=== PATIENT | male | born 1955 | race African-American/Black ===

== ENCOUNTER 2021-05-13 11:44 | Observation (INO) | payer MEDICARE, OTHER ==
[~2021-05-13] VITALS: Ht 180.3 cm; Wt 142.4 kg
[2021-05-13] MEDS ORDERED: ACETAMINOPHEN 500 MG TABLET PO ONE (12:15)
[2021-05-13] MEDS ORDERED: fentaNYL 75MCG/HR PATCH 1 PATCH PATCH.TD72 TD ONE (12:15)
--- NOTE | 2021-05-13 12:36 | PHYS DOC ---
Past Medical History Past Surgical History: Pacemaker Smoking Status: Never Smoker Alcohol Use: None General Adult EDM: Chief Complaint: ELBOW PROBLEM HPI: HPI: Patient is a 65 year old male who presents with 2 days ago he was drinking alcohol on top of his medications that usually make him dizzy and fell walking to the kitchen and then fell again onto his bottom. Patient is not very forthcoming with information. He states he is always dizzy and the room is spinning at this time. He states he is getting around normal except for Thursday when he had been drinking. states that he has indeed been getting around as normal except for on Thursday when he had been drinking. He does walk with a cane. He is complaining of left elbow pain, low back pain. He denies hitting his head, neck pain, focal weakness, numbness or tingling, chest pain, shortness of air, abdominal pain, nausea, vomiting or diarrhea. Patient does have diabetes, hypertension, CHF, high cholesterol. Rates his pain an 8 out of 10. Review of Systems: Review of Systems: Constitutional: Denies fever or chills. [] Eyes: Denies change in visual acuity. [] HENT: Denies nasal congestion or sore throat. [] Respiratory: Denies cough or shortness of breath. [] Cardiovascular: Denies chest pain or edema. [] GI: Denies abdominal pain, nausea, vomiting, bloody stools or diarrhea. [] : Denies dysuria. [] Musculoskeletal: + Lower back pain or + left elbow joint pain. [] Integument: Denies rash. [] Neurologic: Denies headache, focal weakness or sensory changes. + Chronic dizziness [] Endocrine: Denies polyuria or polydipsia. [] Lymphatic: Denies swollen glands. [] Psychiatric: Denies depression or anxiety. [] Heart Score: C/O Chest Pain: No Current Medications: Current Medications Medications (Trade) Dose Ordered Sig/Stephanie Start Time Stop Time Status Last Admin Dose Admin Acetaminophen (Tylenol) 1,000 mg 1X ONCE 05/13/21 12:15 05/13/21 12:16 UNV Fentanyl (Duragesic 75mcg/ Hr Patch) 1 patch 1X ONCE 05/13/21 12:15 05/13/21 12:16 UNV Allergies: Allergies: Allergies Coded Allergies Type Severity Reaction Last Updated Verified Penicillins Allergy Intermediate 05/13/21 Yes lorazepam Allergy Intermediate 05/13/21 Yes Physical Exam: PE: Constitutional: Well developed, well nourished, no acute distress, non-toxic appearance. [] HENT: Normocephalic, atraumatic, bilateral external ears normal, oropharynx moist, no oral exudates, nose normal. [] Eyes: PERRLA, EOMI, conjunctiva normal, no discharge. [] Neck: Normal range of motion, no tenderness, supple, no stridor. [] Cardiovascular:Heart rate regular rhythm, no murmur [] Lungs & Thorax: Bilateral breath sounds clear to auscultation [] Abdomen: Bowel sounds normal, soft, no tenderness, no masses, no pulsatile masses. [] Skin: Warm, dry, no erythema, no rash. [] Back: Mid lower lumbar tenderness, no CVA tenderness. [] Extremities: Left elbow tenderness, no cyanosis, no clubbing, ROM intact, 1+ edema. [] Neurologic: Alert and oriented X 3, normal motor function, normal sensory function, no focal deficits noted. [] Psychologic: Affect normal, judgement normal, mood normal. [] Current Patient Data: Vital Signs: Vital Signs Date Time Temp Pulse Resp B/P (MAP) Pulse Ox O2 Delivery O2 Flow Rate FiO2 05/13/21 11:45 98.3 58 20 115/71 (86) 99 Room Air 98.3 EKG: EKG: [] Radiology/Procedures: Radiology/Procedures: [] Impression: [facility] [address] [place], [place] [id number] IMAGING REPORT Signed PATIENT: JESUS MCCLUREUNT: [id number] : 1955 LOCATION: ER AGE: 65 SEX: M EXAM STATUS: REG ER ORD. PHYSICIAN: JOSH NASH APRN REASON: DIZZINESS, FALL PROCEDURE: CT HEAD AND CERVICAL SPINE WO Examination: CT head and cervical spine without contrast CT HEAD INDICATION: Reason: DIZZINESS, FALL / Spl. Instructions: / History: COMPARISON: None Available. Exposure: One or more of the following individualized dose reduction techniques were utilized for this examination: 1. Automated exposure control 2. Adjustment of the mA and/or kV according to patient size 3. Use of iterative reconstruction technique TECHNIQUE: 5 mm contiguous axial images were obtained from the skull base to the vertex in both bone and soft tissue algorithm. FINDINGS: Examination is very limited due to patient body habitus. Mild bilateral periventricular white matter hypodensities likely chronic small vessel ischemic disease. No evidence of acute intracranial hemorrhage. No extra-axial fluid collections. No mass effect or midline shift. Ventricular size is appropriate. Basal cisterns are patent. No fractures identified.Watson-white differentiation is preserved.Globes and orbits are within normal limits. Paranasal sinuses and mastoid air cells are clear. CT CERVICAL SPINE INDICATION: Reason: DIZZINESS, FALL / Spl. Instructions: / History: COMPARISON: None Available. Technique: 2.5 mm contiguous axial images were obtained from the skull base t hrough the cervicothoracic junction in both bone and soft tissue algorithm. Additional sagittal and coronal reconstructions were also performed. FINDINGS: Examination is very limited due to patient body habitus limits evaluation. Mild compression changes of cervical vertebral bodies particularly at C4, C5, C6, C7 vertebral levels likely chronic. Moderate anterior osteophyte formation identified at this levels. The bilateral facets are well aligned. . The lateral masses of C1 are aligned upon C2. No fractures identified. The bony canal is patent throughout. The paraspinous soft tissues are unremarkable. Visualized intracranial contents are unremarkable. Lung apices are clear. IMPRESSION: 1. No acute intracranial findings. 2. Examination is very limited due to patient body habitus limits evaluation. Mild compression changes of cervical vertebral bodies particularly at C4, C5, C6, C7 vertebral levels likely chronic. Moderate degenerative changes cervical spine. Electronically signed by: Yrn Ortiz MD (05/13/2021 1:07 PM) [id number] DICTATED and SIGNED BY: YRN ORTIZ MD DATE: 05/13/21 [id number] [facility] [address] [place], [place] [id number] IMAGING REPORT Signed PATIENT: JESUS MCCLUREUNT: [id number] : 1955 LOCATION: ER AGE: 65 SEX: M EXAM STATUS: REG ER ORD. PHYSICIAN: JOSH NASH APRN REASON: PAIN AFTER FALL PROCEDURE: ELBOW LEFT 3V Exam: XR ELBOW COMPLETE_LEFT 3+VIEWS History: Pain after fall. Comparison: None. Findings: Osseous mineralization is normal. There is a moderate elbow effusion without a fracture identified. Mild degenerative changes at the olecranon soft tissue swelling. Impression: 1. Elbow effusion without acute osseous abnormality identified is concerning for occult fracture, most commonly at the radial head. Recommend conservative management. Consider repeat radiographs in 1-[address] of the elbow for further evaluation for suspected occult fracture. Electronically signed by: Omer Chapman MD (05/13/2021 1:10 PM) [id number] DICTATED and SIGNED BY: OMER CHAPMAN MD DATE: 05/13/21 [id number] [facility] [address] [place] [address] IMAGING REPORT Signed PATIENT: JESUS MCCLUREUNT: [id number] : 1955 LOCATION: ER AGE: 65 SEX: M EXAM STATUS: REG ER ORD. PHYSICIAN: JOSH NASH APRN REASON: LOW BACK PAIN PROCEDURE: CT LUMBAR SPINE WO CONTRAST EXAM: Lumbar spine CT without contrast. HISTORY: Pain. TECHNIQUE: Computed tomographic images of the lumbar spine were obtained without contrast. Multiplanar reformatting was performed. *One or more of the following individualized dose reduction techniques were utilized for this examination: 1. Automated exposure control. 2. Adjustment of the mA and/or kV according to patient size. 3. Use of iterative reconstruction technique. COMPARISON: None. FINDINGS: There is mild lumbar scoliosis. There is no significant listhesis. There is degenerative endplate remodeling with disc space narrowing, osteophytosis and Schmorl's node formation primarily along the right aspect of L4-L5. This corresponds with the level of maximum scoliotic concavity. There is a lesser degree of endplate remodeling, osteophytosis and Schmorl's node formation along the left aspect of L5-S1. 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 There is degenerative spurring and subchondral sclerosis involving the left greater than right sacroiliac joints. The sacral posterior elements are congenitally nonfused. There is slight nodularity of the right adrenal gland, partially included on the [id number] and likely due to nodular thickening rather than an adenoma. At L1-L2, there is a disc bulge and endplate remodeling. There is no stenosis. At L2-L3, there is a disc bulge and endplate remodeling. There is mild bilateral facet arthropathy. There is mild bilateral foraminal stenosis. At L3-L4, there is a disc bulge and endplate remodeling. There is mild bilateral facet arthropathy. There is mild left greater than right foraminal stenosis. There is mild central canal stenosis. At L4-L5, there is a right foraminal to extra foraminal disc protrusion and osteophyte complex with slight superior extrusion superimposed on a right lateral predominant disc bulge and endplate osteophytosis. There is moderate right facet arthropathy. There is severe right and moderate left foraminal stenosis. There is mild central canal stenosis. At L5-S1, there is a left lateral predominant disc bulge and endplate osteophytosis. There is moderate right and severe left foraminal stenosis. IMPRESSION: 1. Multilevel degenerative change involving the lumbar spine, described in detail above. This results in stenosis at the aforementioned levels. The right foraminal stenosis is most significant at L4-5 and a left foraminal stenosis is most significant at L5-S1. 2. Lumbar scoliosis. Electronically signed by: Chelsey De Anda MD (05/13/2021 1:08 PM) [id number] DICTATED and SIGNED BY: CHELSEY DE ANDA MD DATE: 05/13/21 [id number] 0 Course & Med Decision Making: Course & Med Decision Making Pertinent Labs and Imaging studies reviewed. (See chart for details) See HPI. Alert and oriented x4. Ambulatory with a steady gait but uses a cane. Neurologically intact. Speaks in full clear sentences. Answers all questions appropriately. Full range of motion of the left elbow but there is 1+ swelling without redness or heat. Is painful with motion. Radial pulse strong are present. Cap refill less than 2 seconds. Can wiggle his fingers. No deformity or laxity. Forearm and humerus are not tender or deformed or swollen. No focal bony spinal tenderness except for lumbar area and paraspinal lumbar areas. Patient is wearing a brace on his elbow and a sling from home. Full ROM of the neck without tenderness. No trauma to the face or head. I did have Dr Masters go in and see the patient also since he was not forth coming with information. Patient does have a left radial head fracture. He will be splinted with posterior splint. He will be admitted to the hospital due to being a high fall risk probability due to the patient already having poor mobile ability. I spoke to Dr. Villa with orthopedics and he states he will come in and consult on the patient. Splint assessment: Neurovascularly intact post splint replacement with good fit. Patient's extremity symptoms have stabilized well they have been evaluated in the department and are appropriate for outpatient follow-up. No evidence of compartment syndrome, neurologic injury, vascular injury, open joint, open fracture, tendon laceration, or foreign body. [] Dragon Disclaimer: Dragon Disclaimer: This electronic medical record was generated, in whole or in part, using a voice recognition dictation system. Departure Departure Impression: Primary Impression: Radial head fracture, closed Qualified Codes: S52.125A - Nondisplaced fracture of head of left radius, initial encounter for closed fracture Additional Impressions: Unable to ambulate Unable to care for self Frequent falls Disposition: ADMITTED INPATIENT Admitting Physician: VASILE Condition: STABLE Referrals: Shobha VELEZ MD (PCP) JOSH NASH APRN May 13, 2021 12:36
[2021-05-13 12:43] LABS: BASO # 0.1 x10^3/uL (0.0-0.2); BASO % 0 % (0-3); EOS % 0 % (0-3); HEMATOCRIT 38.1 % (39.0-53.0); HEMOGLOBIN 12.3 g/dL (13.0-17.5); LYMPH # 0.7 x10^3/uL (1.0-4.8); LYMPH % 5 % (24-48); MEAN CORPUSCULAR HEMOGLOBIN 31 pg (25-35); MEAN CORPUSCULAR HGB CONC 32 g/dL (31-37); MEAN CORPUSCULAR VOLUME 95 fL (79-100); MONO # 1.1 x10^3/uL (0.0-1.1); MONO % 9 % (0-9); NEUT # 10.5 x10^3/uL (1.8-7.7); NEUT % 85 % (31-73); PLATELET COUNT 164 x10^3/uL (140-400); RED BLOOD COUNT 3.99 x10^6/uL (4.30-5.70); RED CELL DISTRIBUTION WIDTH 14.9 % (11.5-14.5); WHITE BLOOD COUNT 12.4 x10^3/uL (4.0-11.0)
[2021-05-13 12:52] LABS: CALCIUM 9.1 mg/dL (8.5-10.1); CREATININE 1.6 mg/dL (0.7-1.3); GFR 53.1; POTASSIUM 4.4 mmol/L (3.5-5.1)
[2021-05-13 12:58] LABS: ALBUMIN 3.4 g/dL (3.4-5.0); ALBUMIN/GLOBULIN RATIO 0.7 (1.0-1.7); TOTAL BILIRUBIN 1.2 mg/dL (0.2-1.0); TOTAL PROTEIN 8.1 g/dL (6.4-8.2)
--- NOTE | 2021-05-13 13:09 | RAD ---
Examination: CT head and cervical spine without contrast CT HEAD INDICATION: Reason: DIZZINESS, FALL / Spl. Instructions: / History: COMPARISON: None Available. Exposure: One or more of the following individualized dose reduction techniques were utilized for thi s examination: 1. Automated exposure control 2. Adjustment of the mA and/or kV according to patient size 3. Use of iterative reconstruction technique TECHNIQUE: 5 mm contiguous axial images were obtained from the skull base to the vertex in both bone and soft tissue algorithm. FINDINGS: Examination is very limited due to patient body habitus. Mild bilateral periventricular white matter hypodensities likely chronic small vessel ischemic diseas e. No evidence of acute intracranial hemorrhage. No extra-axial fluid collections. No mass effect or midline shift. Ventricular size is appropriate. Basal cisterns are patent. No fractures identified.Watson-white differentiation is preserved.Globes and orbits are within normal l imits. Paranasal sinuses and mastoid air cells are clear. CT CERVICAL SPINE INDICATION: Reason: DIZZINESS, FALL / Spl. Instructions: / History: COMPARISON: None Available. Technique: 2.5 mm contiguous axial images were obtained from the skull base through the cervicothorac ic junction in both bone and soft tissue algorithm. Additional sagittal and coronal reconstructions were also performed. FINDINGS: Examination is very limited due to patient body habitus limits evaluation. Mild compression changes o f cervical vertebral bodies particularly at C4, C5, C6, C7 vertebral levels likely chronic. Moderate anterior osteophyte formation identified at this levels. The bilateral facets are well aligned. . Th e lateral masses of C1 are aligned upon C2. No fractures identified. The bony canal is patent throughout. The paraspinous soft tissues are unremarkable. Visualized intracranial contents are unremarkable. L karen apices are clear. IMPRESSION: 1. No acute intracranial findings. 2. Examination is very limited due to patient body habitus limits evaluation. Mild compression skinner es of cervical vertebral bodies particularly at C4, C5, C6, C7 vertebral levels likely chronic. Moder ate degenerative changes cervical spine. Electronically signed by: Yrn Ortiz MD (05/13/2021 1:07 PM) [id number]
--- NOTE | 2021-05-13 13:11 | RAD ---
EXAM: Lumbar spine CT without contrast. HISTORY: Pain. TECHNIQUE: Computed tomographic images of the lumbar spine were obtained without contrast. Multiplana r reformatting was performed. *One or more of the following individualized dose reduction techniques were utilized for this examina tion: 1. Automated exposure control. 2. Adjustment of the mA and/or kV according to patient size. 3. Use of iterative reconstruction technique. COMPARISON: None. FINDINGS: There is mild lumbar scoliosis. There is no significant listhesis. There is degenerative en dplate remodeling with disc space narrowing, osteophytosis and Schmorl's node formation primarily sonya ng the right aspect of L4-L5. This corresponds with the level of maximum scoliotic concavity. There i s a lesser degree of endplate remodeling, osteophytosis and Schmorl's node formation along the left a spect of L5-S1. 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 There is degenerativ e spurring and subchondral sclerosis involving the left greater than right sacroiliac joints. The sac ral posterior elements are congenitally nonfused. There is slight nodularity of the right adrenal gla nd, partially included on the [id number] and likely due to nodular thickening rather than an adeno ma. At L1-L2, there is a disc bulge and endplate remodeling. There is no stenosis. At L2-L3, there is a disc bulge and endplate remodeling. There is mild bilateral facet arthropathy. T here is mild bilateral foraminal stenosis. At L3-L4, there is a disc bulge and endplate remodeling. There is mild bilateral facet arthropathy. T here is mild left greater than right foraminal stenosis. There is mild central canal stenosis. At L4-L5, there is a right foraminal to extra foraminal disc protrusion and osteophyte complex with s light superior extrusion superimposed on a right lateral predominant disc bulge and endplate osteophy tosis. There is moderate right facet arthropathy. There is severe right and moderate left foraminal s tenosis. There is mild central canal stenosis. At L5-S1, there is a left lateral predominant disc bulge and endplate osteophytosis. There is moderat e right and severe left foraminal stenosis. IMPRESSION: 1. Multilevel degenerative change involving the lumbar spine, described in detail above. This results in stenosis at the aforementioned levels. The right foraminal stenosis is most significant at L4-5 a nd a left foraminal stenosis is most significant at L5-S1. 2. Lumbar scoliosis. Electronically signed by: Chelsey Jennings MD (05/13/2021 1:08 PM) [id number]
--- NOTE | 2021-05-13 13:12 | RAD ---
Exam: XR ELBOW COMPLETE_LEFT 3+VIEWS History: Pain after fall. Comparison: None. Findings: Osseous mineralization is normal. There is a moderate elbow effusion without a fracture identified. M ild degenerative changes at the olecranon soft tissue swelling. Impression: 1. Elbow effusion without acute osseous abnormality identified is concerning for occult fracture, mo st commonly at the radial head. Recommend conservative management. Consider repeat radiographs in 1-[address] of the elbow for further evaluation for suspected occult fracture. Electronically signed by: Omer Schroeder MD (05/13/2021 1:10 PM) [id number]
[2021-05-13 16:40] VITALS: BP 98/63
[2021-05-13 19:00] VITALS: BP 115/74
[2021-05-13] MEDS ORDERED: CALCIUM CARBONATE 500 MG TAB.CHEW PO PRN (19:00)
[2021-05-13] MEDS ORDERED: ONDANSETRON PF 4 MG/2 ML VIAL. IVP PRN (19:00)
[2021-05-13] MEDS ORDERED: oxyCODONE/APAP 5/325 1 TAB TABLET PO PRN (19:00)
[2021-05-13] MEDS ORDERED: ELECTROLYTE (NON-ICU) PROTOCOL. MC PRN (19:00)
[2021-05-13] MEDS ORDERED: ACETAMINOPHEN 325 MG TABLET. PO PRN (19:00)
[2021-05-13] MEDS ORDERED: ZOLPIDEM 5 MG TABLET. PO PRN (19:00)
[2021-05-13] MEDS: oxyCODONE/APAP 5/325 1 TAB TABLET PO PRN (20:36)
[2021-05-13] MEDS: SENNOSIDES/DOCUSATE 8.6/50MG TABLET. PO SCH (20:36)
[2021-05-13] MEDS: HEPARIN for SUB-Q USE 5,000 UNIT/ML VIAL. SQ SCH (22:23)
[2021-05-13 23:00] VITALS: BP 104/70
[2021-05-14 03:00] VITALS: BP 103/79
[2021-05-14] MEDS: HEPARIN for SUB-Q USE 5,000 UNIT/ML VIAL. SQ SCH ×2 (05:52→14:28)
[2021-05-14 07:00] VITALS: BP 115/75
[2021-05-14] MEDS: SENNOSIDES/DOCUSATE 8.6/50MG TABLET. PO SCH (08:27)
--- NOTE | 2021-05-14 09:56 | PDOC1 ---
History and Physical Date of Service: DOS: DATE: 05/14/21 TIME: 09:50 History of Present Illness: HPI: Patient really not providing much info H&P from emergency room Patient is a 65 year old male who presents with 2 days ago he was drinking alcohol on top of his medications that usually make him dizzy and fell walking to the kitchen and then fell again onto his bottom. Patient is not very forthcoming with information. He states he is always dizzy and the room is spinning at this time. He states he is getting around normal except for Thursday when he had been drinking. states that he has indeed been getting around as normal except for on Thursday when he had been drinking. He does walk with a cane. He is complaining of left elbow pain, low back pain. He denies hitting his head, neck pain, focal weakness, numbness or tingling, chest pain, shortness of air, abdominal pain, nausea, vomiting or diarrhea. Patient does have diabetes, hypertension, CHF, high cholesterol. Rates his pain an 8 out of 10. Past Medical/Surgical History: PMH/PSH: Diabetes hypertension CHF Allergies: Allergies: Coded Allergies: Penicillins (Verified Allergy, Intermediate, 05/13/21) lorazepam (Verified Allergy, Intermediate, 05/13/21) Family History: Family History: Hypertension Social History: Social History: Denies tobacco use. Frequent alcohol use Current Medications: Current Medications Current Medications Acetaminophen (Tylenol) 1,000 mg 1X ONCE PO Last administered on 05/13/21at 13:14; Start 05/13/21 at 12:15; Stop 05/13/21 at 12:32; Status DC Fentanyl (Duragesic 75mcg/ Hr Patch) 1 patch 1X ONCE TD Last administered on 05/13/21at 13:14; Start 05/13/21 at 12:15; Stop 05/13/21 at 12:32; Status DC Ondansetron HCl (Zofran) 4 mg PRN Q6HRS PRN IVP NAUSEA/VOMITING; Start 05/13/21 at 19:00 Calcium Carbonate/ Glycine (Tums) 500 mg PRN Q3HRS PRN PO UPSET STOMACH; Start 05/13/21 at 19:00 Zolpidem Tartrate (Ambien) 5 mg PRN QHS PRN PO INSOMNIA, MAY REPEAT IN 1HR; Start 05/13/21 at 19:00 Info (Non-Icu Electrolyte Protocol) 1 ea PRN DAILY PRN MC SEE COMMENTS; Start 05/13/21 at 19:00 Oxycodone/ Acetaminophen (Percocet 5/325) 1 tab PRN Q4HRS PRN PO MILD PAIN, 1ST CHOICE; Start 05/13/21 at 19:00 Oxycodone/ Acetaminophen (Percocet 5/325) 2 tab PRN Q4HRS PRN PO MODERATE PAIN, SEVERE PAIN Last administered on 05/13/21at 20:36; Start 05/13/21 at 19:00 Acetaminophen (Tylenol) 650 mg PRN Q6HRS PRN PO Headaches, Temp > 101.5F; Start 05/13/21 at 19:00 Senna/Docusate Sodium (Senna Plus) 1 tab BID PO Last administered on 05/14/21at 08:27; Start 05/13/21 at 21:00 Heparin Sodium (Porcine) (Heparin Sodium) 5,000 unit Q8HRS SQ Last administered on 05/14/21at 05:52; Start 05/13/21 at 22:00 ROS: Review of Systems Review of System Negative unless noted in HPI Physical Exam: Vital Signs: Vital Signs Date Time Temp Pulse Resp B/P (MAP) Pulse Ox O2 Delivery O2 Flow Rate FiO2 05/14/21 07:00 98.5 93 18 115/75 (88) 95 Room Air 98.5 Physcial Exam: GEN: No apparent distress. Alert and oriented HEENT: Normal cephalic, atraumatic, external auditory canals are patent EYES: Extraocular muscles are intact, pupil are equally round and reactive to light and accommodation MUSCULOSKELETAL: Well developed , well nourished, good range of motion ENDOCRINE: No thyromegaly was palpated LYMPHATICS: No cervical chain or axillary nodes were noted HEMATOPOIETIC: No bruising NECK: Supple, no JVD, no thyromegaly was noted LUNGS: Clear to auscultation in all lung henson without rhonchi or wheezing HEART: RRR, S!, S2 present. Peripheral pulses intact, no obvious murmurs noted ABDOMEN: Soft, nontender. Positive bowel sounds, no organomegaly, normal bowel sounds EXTREMITIES: Without clubbing, cyanosis, or edema. Pedal pulses intact. Negative Homans sign NEUROLOGIC: Normal speech and tone. A&O x 3, moves all extremities, no obvious focal deficits PSYCHIATRIC: Normal affect, normal mood. Stable SKIN: No ulcerations or rashes, good skin turgor, no jaundice VASCULAR: Good capillary refill, neurovascular bundle appears to be intact Labs: Labs: Laboratory Tests Test 05/13/21 12:24 05/13/21 15:05 White Blood Count 12.4 x10^3/uL (4.0-11.0) Red Blood Count 3.99 x10^6/uL (4.30-5.70) Hemoglobin 12.3 g/dL (13.0-17.5) Hematocrit 38.1 % (39.0-53.0) Mean Corpuscular Volume 95 fL (79-100) Mean Corpuscular Hemoglobin 31 pg (25-35) Mean Corpuscular Hemoglobin Concent 32 g/dL (31-37) Red Cell Distribution Width 14.9 % (11.5-14.5) Platelet Count 164 x10^3/uL (140-400) Neutrophils (%) (Auto) 85 % (31-73) Lymphocytes (%) (Auto) 5 % (24-48) Monocytes (%) (Auto) 9 % (0-9) Eosinophils (%) (Auto) 0 % (0-3) Basophils (%) (Auto) 0 % (0-3) Neutrophils # (Auto) 10.5 x10^3/uL (1.8-7.7) Lymphocytes # (Auto) 0.7 x10^3/uL (1.0-4.8) Monocytes # (Auto) 1.1 x10^3/uL (0.0-1.1) Eosinophils # (Auto) 0.0 x10^3/uL (0.0-0.7) Basophils # (Auto) 0.1 x10^3/uL (0.0-0.2) Sodium Level 135 mmol/L (136-145) Potassium Level 4.4 mmol/L (3.5-5.1) Chloride Level 96 mmol/L (98-107) Carbon Dioxide Level 25 mmol/L (21-32) Anion Gap 14 (6-14) Blood Urea Nitrogen 18 mg/dL (8-26) Creatinine 1.6 mg/dL (0.7-1.3) Estimated GFR (Cockcroft-Gault) 53.1 BUN/Creatinine Ratio 11 (6-20) Glucose Level 138 mg/dL (70-99) Calcium Level 9.1 mg/dL (8.5-10.1) Total Bilirubin 1.2 mg/dL (0.2-1.0) Aspartate Amino Transf (AST/SGOT) 17 U/L (15-37) Alanine Aminotransferase (ALT/SGPT) 33 U/L (16-63) Alkaline Phosphatase 124 U/L (46-116) Troponin I High Sensitivity 45 ng/L (4-75) 38 ng/L (4-75) Total Protein 8.1 g/dL (6.4-8.2) Albumin 3.4 g/dL (3.4-5.0) Albumin/Globulin Ratio 0.7 (1.0-1.7) Laboratory Tests Test 05/13/21 12:24 05/13/21 15:05 White Blood Count 12.4 x10^3/uL (4.0-11.0) Red Blood Count 3.99 x10^6/uL (4.30-5.70) Hemoglobin 12.3 g/dL (13.0-17.5) Hematocrit 38.1 % (39.0-53.0) Mean Corpuscular Volume 95 fL (79-100) Mean Corpuscular Hemoglobin 31 pg (25-35) Mean Corpuscular Hemoglobin Concent 32 g/dL (31-37) Red Cell Distribution Width 14.9 % (11.5-14.5) Platelet Count 164 x10^3/uL (140-400) Neutrophils (%) (Auto) 85 % (31-73) Lymphocytes (%) (Auto) 5 % (24-48) Monocytes (%) (Auto) 9 % (0-9) Eosinophils (%) (Auto) 0 % (0-3) Basophils (%) (Auto) 0 % (0-3) Neutrophils # (Auto) 10.5 x10^3/uL (1.8-7.7) Lymphocytes # (Auto) 0.7 x10^3/uL (1.0-4.8) Monocytes # (Auto) 1.1 x10^3/uL (0.0-1.1) Eosinophils # (Auto) 0.0 x10^3/uL (0.0-0.7) Basophils # (Auto) 0.1 x10^3/uL (0.0-0.2) Sodium Level 135 mmol/L (136-145) Potassium Level 4.4 mmol/L (3.5-5.1) Chloride Level 96 mmol/L (98-107) Carbon Dioxide Level 25 mmol/L (21-32) Anion Gap 14 (6-14) Blood Urea Nitrogen 18 mg/dL (8-26) Creatinine 1.6 mg/dL (0.7-1.3) Estimated GFR (Cockcroft-Gault) 53.1 BUN/Creatinine Ratio 11 (6-20) Glucose Level 138 mg/dL (70-99) Calcium Level 9.1 mg/dL (8.5-10.1) Total Bilirubin 1.2 mg/dL (0.2-1.0) Aspartate Amino Transf (AST/SGOT) 17 U/L (15-37) Alanine Aminotransferase (ALT/SGPT) 33 U/L (16-63) Alkaline Phosphatase 124 U/L (46-116) Troponin I High Sensitivity 45 ng/L (4-75) 38 ng/L (4-75) Total Protein 8.1 g/dL (6.4-8.2) Albumin 3.4 g/dL (3.4-5.0) Albumin/Globulin Ratio 0.7 (1.0-1.7) Assessment/Plan Assessment/Plan Closed radial head fracture secondary to fall, history of diabetes hypertension CHF -Presented after fall 2 days ago when he had been drinking. Rare occasion patie nt was drinking. -Presented to ER with worsening arm pain found to have a radial head fracture -Orthopedics consulted -He will need PT OT and possible placement. He does ambulate with a cane -DVT prophylaxis with heparin -Home meds resumed as indicated Justifications for Admission Other Justification SHAWANDA KNOWLES MD May 14, 2021 09:56
--- NOTE | 2021-05-14 10:41 | NUR ---
SW following. Discussed with RN, pt from home with , room air, ada diet. PT/OT ordered. Awaiting further plan of care. SW will continue to follow.
[2021-05-14 11:00] VITALS: BP 108/72
[2021-05-14] MEDS ORDERED: TAMS0.4C97 PO (11:20)
[2021-05-14] MEDS ORDERED: FLUT16SP NS (11:20)
[2021-05-14] MEDS ORDERED: FINA5TAB4 PO (11:20)
[2021-05-14] MEDS ORDERED: GABA300C18 PO (11:20)
[2021-05-14] MEDS ORDERED: EMPA10TA PO (11:20)
[2021-05-14] MEDS ORDERED: BUME1TAB3 PO (11:20)
[2021-05-14] MEDS ORDERED: TRAZ-118 PO (11:20)
[2021-05-14] MEDS ORDERED: MULT1TAB13 PO (11:20)
[2021-05-14] MEDS ORDERED: SACU1TAB PO (11:20)
[2021-05-14] MEDS ORDERED: CHOL5000 PO (11:20)
[2021-05-14] MEDS ORDERED: ESCITALOPRAM OX20 MG PO (11:20)
[2021-05-14] MEDS ORDERED: RIVA20TA2 PO (11:20)
[2021-05-14] MEDS ORDERED: HYDR-2761 PO (11:20)
[2021-05-14] MEDS ORDERED: NITR0.4T22 SL (11:20)
[2021-05-14] MEDS ORDERED: SENN1TAB99 PO (11:20)
[2021-05-14] MEDS ORDERED: ALBU2.5V8 IH (11:20)
[2021-05-14] MEDS ORDERED: ACET500T68 PO (11:20)
[2021-05-14] MEDS ORDERED: BRIM5DRO3 RIGHTEYE (11:20)
[2021-05-14] MEDS ORDERED: FOLI0.4T5 PO (11:20)
[2021-05-14] MEDS ORDERED: VITA1TAB19 PO (11:20)
[2021-05-14] MEDS ORDERED: MAGN64TA6 PO (11:20)
[2021-05-14] MEDS ORDERED: ASPI-886 PO (11:20)
[2021-05-14] MEDS ORDERED: POTA20TA4 PO (11:20)
[2021-05-14] MEDS ORDERED: THIA100T57 PO (11:20)
[2021-05-14] MEDS ORDERED: PANT40TA77 PO (11:20)
[2021-05-14] MEDS ORDERED: METO-239 PO (11:20)
[2021-05-14] MEDS ORDERED: BUPR75TA6 PO (11:20)
[2021-05-14] MEDS ORDERED: SPIR25TA5 PO (11:20)
[2021-05-14] MEDS ORDERED: CRESTOR5 MG PO (11:20)
[2021-05-14] MEDS: oxyCODONE/APAP 5/325 1 TAB TABLET PO PRN (11:41)
[2021-05-14] MEDS ORDERED: FINASTERIDE 5 MG TABLET. PO SCH (12:00)
[2021-05-14] MEDS ORDERED: buPROPion 75 MG TABLET. PO SCH (12:00)
[2021-05-14] MEDS ORDERED: TAMSULOSIN 0.4 MG CAP.ER.24H. PO SCH (12:00)
[2021-05-14] MEDS ORDERED: METOPROLOL SUCC 24HR ER 25 MG TAB.ER.24H. PO SCH (12:00)
[2021-05-14] MEDS ORDERED: CITALOPRAM 20 MG TABLET. PO SCH (12:00)
[2021-05-14] MEDS ORDERED: FLUTICASONE 50MCG/NASAL SPRAY 16GM BOTTLE. NS SCH (12:00)
[2021-05-14] MEDS ORDERED: BUMETANIDE 1 MG TABLET. PO SCH (12:00)
[2021-05-14] MEDS ORDERED: PANTOPRAZOLE 40 MG TABLET.DR. PO SCH (12:00)
[2021-05-14] MEDS ORDERED: BRIMONIDINE 0.2% OPHTH SOLUTION 5ML BOTTLE. OD SCH (12:00)
[2021-05-14] MEDS ORDERED: CHOLECALCIFEROL (VITAMIN D3) 5,000 UNIT CAPSULE PO SCH (12:00)
[2021-05-14] MEDS ORDERED: SACUBITRIL/VALSARTAN 24/26MG TABLET. PO SCH (12:00)
[2021-05-14] MEDS ORDERED: GABAPENTIN 300 MG CAPSULE. PO SCH (14:00)
[2021-05-14 15:00] VITALS: BP 108/64
--- NOTE | 2021-05-14 18:02 | HP ---
DATE OF SERVICE: 05/14/2021 ADMIT DATE: 05/13/2021 REASON FOR CONSULTATION: Left elbow pain. HISTORY OF PRESENT ILLNESS: The patient is a 65-year-old right-hand dominant male who fell yesterday awkwardly while he was at home. He fell directly onto his left side and subsequent to that had significant left elbow pain and was brought to the Emergency Department. After a full evaluation, it was noted that he was having some medical issues and was admitted to the hospital. The elbow was noted to have significant effusion upon x-ray examination. Therefore, he was placed in a posterior splint at my request. PAST MEDICAL HISTORY: Remarkable for cataracts as well as cardiac disorders including congestive heart failure. He currently has a pacemaker with an internally fixed defibrillator. He has hypertension, hypercholesterol, sleep apnea, acid reflux, posttraumatic stress disorder, depression, tobacco use. REVIEW OF SYSTEMS: GENERAL: Unremarkable currently other than his left elbow pain. He is alert and oriented x2. ENT: Within normal limits other than his cataract in his left eye, which is obvious at this point. There were significant abnormalities, however for a period. Medically, there are no issues with his lung henson. Regular rate and rhythm today noted. PHYSICAL EXAMINATION: His examination of the elbow reveals there to be decreased range of motion secondary to discomfort, but this is possible. He has some pain with palpation of the lateral structures of the elbow with no signs of instability. Distal neurovascular status appears to be fully intact. No atrophy of musculature, left versus right. X-rays are unremarkable for any obvious fractures. There is a large effusion with a posterior fusion as well as the anterior sail sign. IMPRESSION: Left elbow contusion versus occult fracture, left elbow. PLAN: At this time, since there is no obvious fracture, there is definitely some type of fluid within that secondary to trauma. Most likely bloody effusion at this point secondary to trauma. I have therefore talked with him and his about keeping his splint intact. Pain control, ice and modification of activities with no use of this left upper extremity and we will reevaluate in the office in 1 week, at which time we will get a better examination at that point. Treatment obviously will depend on findings at that time. Until then, again he is nonuse of the left upper extremity as he goes home today. BENNY/MARISEL DR: BENNY/michael TID: [id number]
--- NOTE | 2021-05-14 18:02 | NUR ---
Patient discharge home with self care today, via wheelchair, accompanied by this RN. Patient is stable, IV removed, and discharge paperwork given to patient. Patient verbalized understanding of followup and discharge instruction. Patient was instructed to call Dr. Laws office to follow up with him in a week on Thursday.
[2021-05-14] MEDS ORDERED: traZODone 50 MG TABLET. PO SCH (21:00)
[2021-05-15] MEDS ORDERED: OXYC1TAB15 PO (12:16)
[2021-05-16] MEDS ORDERED: ATORVASTATIN CALCIUM 40 MG TABLET. PO SCH (09:00)
== END 2021-05-14 18:06 | disposition home or self-care (01) ==
LOC: ER 11:44 → 4 NORTH 13:56
PROVIDERS: ADMIT Student in an Organized Health Care Education/Training Program; ATTEND Student in an Organized Health Care Education/Training Program
DX: S52.125A Nondisplaced fracture of head of left radius, initial encounter for closed fracture (principal); I11.0 Hypertensive heart disease with heart failure; I50.9 Heart failure, unspecified; E11.9 Type 2 diabetes mellitus without complications; E78.00 Pure hypercholesterolemia, unspecified; F43.10 Post-traumatic stress disorder, unspecified; M41.9 Scoliosis, unspecified; M48.00 Spinal stenosis, site unspecified; R42 Dizziness and giddiness; W18.30XA Fall on same level, unspecified, initial encounter; Y93.89 Activity, other specified; Y92.89 Other specified places as the place of occurrence of the external cause; Y99.9 Unspecified external cause status; R29.6 Repeated falls; Z82.49 Family history of ischemic heart disease and other diseases of the circulatory system; Z95.0 Presence of cardiac pacemaker; Z88.0 Allergy status to penicillin; Z88.8 Allergy status to other drugs, medicaments and biological substances; Z79.899 Other long term (current) drug therapy; Z98.890 Other specified postprocedural states
CPT/HCPCS: 36415; 70450; 72125; 72131; 73080; 80053; 84484; 85025; 96372; 97162; 97166; 97530; 97535; 99285; G0378; J1644; G0379